=== PATIENT | male | born 1995 | race Caucasian/White ===

== ENCOUNTER 2016-05-18 22:51 | Emergency (ER) | payer OTHER ==
[~2016-05-18] VITALS: Ht 182.9 cm; Wt 68.2 kg
[2016-05-18 22:56] VITALS: BP 141/76; PULSE 102; RESP 16; O2SAT 98
--- NOTE | 2016-05-19 00:05 | ED.REPORT ---
HPI-Extremity Problem Upper Date of Service May 19, 2016 ED Provider: MD Julian This is a 20 year old male presenting to the emergency department due to R arm pain that worsened today. 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 Denies numbness or tingling. Denies any other injuries at this time. Nursing Notes Stated Complaint: RT ARM PAIN/SWELLING Chief Complaint: Extremity Trauma Nursing Notes Reviewed: Yes Allergies: Coded Allergies: No Known Allergies (Unverified , 05/18/16) General Time Seen by MD: 00:04 Chief Complaint Arm injury right Hx Obtained From: Patient Arrived By: Walk-in Onset Occurred: 5 - 8 hours ago Symptom Duration: Since onset Severity: Current: Moderate Pertinent Negative: Pt denies other symptoms Recent Healthcare: No recent doctor visit, No recent hospitalization Similar Sx Previous: No Past Medical History Past Medical History Denies Ambulatory Status Independent Review of Systems Constitutional: Denies: Chills, Fever Musculoskeletal: Reports: Extremity pain, Extremity swelling Neurologic: Denies: Numbness Complete sys rev & neg: except as marked. Physical Exam Initial Vital Signs Vital Signs (First) Date Time Temp Pulse Resp B/P Pulse Ox O2 Delivery O2 Flow Rate FiO2 05/18/16 22:56 37.4 102 16 141/76 98 Room Air Initial VS: Reviewed General/Constitutional: Well-developed, Well-nourished Head / Eyes: Atraumatic, Normocephalic, PERRL ENT: Mucous membranes moist, Conjunctiva normal, No scleral icterus Neck: Supple, Non-tender, Full range of motion Respiratory: Breath sounds normal, Clear to auscultation, No respiratory distress Cardiovascular: Regular rate & rhythm, Heart sounds normal, Intact distal pulses Lower Extremities: Vascular intact, Neuro intact, No swelling, No tenderness Skin: Warm, Dry, No cyanosis Neurologic: Alert, Oriented, Nonfocal Psychiatric: Mood/affect normal, Behavior normal, Normal thought content Upper Extremity / MS: Neurologic intact, Vascular intact Tender swollen area just proximal to R wrist. Radial, ulnar, medial nerves intact, 5/5 strength in hand Interpretation & Diagnostics R ARM X-RAY Negative. Wet Read ED physician Re-Eval/Medical Decision Med Decision/Clinical Course 20-year-old male with no past medical history here with slight swelling to the right forearm. Differential diagnosis includes but is not limited to fracture versus dislocation versus contusion versus muscle spasm. Patient's x-ray is normal by my read. He has no snuffbox tenderness to palpation. He is distally neurovascularly intact. He is amenable to discharge with ibuprofen and follow up with his primary care physician, and has been given very strict return precautions. Counseled Regarding: Diagnosis, Lab results, Need for follow-up, When/why to return to ED Discharge & Departure Impression: Primary Impression: Right arm pain Disposition: Home Discharge Condition All VS Reviewed: Yes Condition: Stable Additional Instructions: Thank you for seeking care in the emergency department. Your x-ray was normal. Take ibuprofen as needed for pain control. Follow up with your primary care provider. Return to the emergency department for any new or worsening symptoms. Referrals: [facility] Scribe Attestation Portions of this note were transcribed by Negin Altamirano. I, Dr. Jordan personally performed the history, physical exam and medical decision-making; I reviewed and confirmed the accuracy of the information in the transcribed note. Signed by: wally Bassett. 05/18/2016, 03:00. Jessica Jordan MD May 19, 2016 00:05 NEGIN ALTAMIRANO May 19, 2016 00:17
--- NOTE | 2016-05-19 09:05 | DRSVH ---
PROCEDURE: X-RAY RIGHT FOREARM, TWO VIEWS ([id number]) INDICATIONS: forearm pain/swelling TECHNIQUE: 2 views of the forearm were acquired. COMPARISON: None. FINDINGS: Bones: No fractures or dislocations. No suspicious bony lesions. Soft tissues: No suspicious soft tissue calcifications or masses. Mild dorsal soft tissue swelling. IMPRESSION: No displaced fracture seen. If there is continued pain, followup exam or additional yi ging such as MRI or CT could be performed for further assessment. Dictated by: aDt Douglas [facility] Interpreted: Aury Alexandre MD on 05/19/2016 at 9:04 Transcribed by: MARCELO on 05/19/2016 at 9:05 Approved by: Aury Alexandre MD, PhD on 05/19/2016 at 17:17
== END 2016-05-19 01:25 | disposition home or self-care (01) ==
LOC: SED 22:51
DX: M79.631 Pain in right forearm (principal)

== ENCOUNTER 2016-06-16 15:12 | Emergency (ER) | payer OTHER ==
[~2016-06-16] VITALS: Ht 182.9 cm; Wt 72.7 kg
[2016-06-16 15:23] VITALS: BP 136/75; PULSE 69; RESP 15; O2SAT 97
[2016-06-16] MEDS ORDERED: Fluorescein 0.6 mg Ophthalmic Strip LEFT_EYE ONE (19:15)
[2016-06-16] MEDS ORDERED: Tetracaine 0.5% 4 mL Ophthalmic Solution LEFT_EYE ONE (19:15)
--- NOTE | 2016-06-16 19:56 | ED.REPORT ---
HPI-Eye Problem Date of Service June 16, 2016 ED Provider: Ramone Arellano History of Present Illness: 20yo brandon was drilling into wood board above head this morning when saw dust debris fell into L eye. was not wearing eye protection. Flushed copiously. L eye vision feels blurred. No other injuries. Does not wear contacts or glasses. Nursing Notes Stated Complaint: EYE Chief Complaint: Eye Nursing Notes Reviewed: Yes Allergies: Coded Allergies: No Known Allergies (Unverified , 06/16/16) Scheduled Moxifloxacin Ophth Soln (Vigamox Ophth Soln) 3 Ml Soln 1 DROP LEFT_EYE TID Scheduled PRN Hydrocodone-Acetaminophen 5-325 mg (Hydrocodone-Acetaminophen 5-325 mg) 1 Each Tablet 1 TABLET PO QID PRN PRN For Pain General Time Seen by MD: 18:59 Chief Complaint Left eye affected, Foreign body sensation, Pain, Redness Hx Obtained From: Patient Arrived By: Walk-in Sudden in Onset?: Yes Onset Occurred: 9 - 12 hours ago Symptom Duration: Since onset Progression Since Onset: Unchanged Caused by: Foreign body in eye Location: : Eye left Radiation: Does not radiate Severity: Current: Moderate Severity: Maximum: Moderate Associated with: Reports: Blurred vision, Eye tearing Pertinent Negative: Pt denies other symptoms Pertinent Negative: Exacerbated by nothing, Relieved by nothing Related History: Denies: Contact lens use, Eye surgery Recent Healthcare: No recent doctor visit Similar Sx Previous: No Risk-Eye Problem Eye Injury Risk Stratification RF Statements: No risk factors Past Medical History Past Medical History Denies Past Surgical History denies Ambulatory Status Independent Review of Systems Constitutional: Denies: Chills, Fever Eyes: Reports: Blurred left, Eye pain left, Redness left Respiratory: Denies: Shortness of breath Cardiovascular: Denies: Chest pain GI: Denies: Abdominal pain Physical Exam Physical Exam Notes: Visual acuity: OS 20/60; OD 20/30 Initial Vital Signs Vital Signs (First) Date Time Temp Pulse Resp B/P Pulse Ox O2 Delivery O2 Flow Rate FiO2 06/16/16 15:23 36.0 69 15 136/75 97 Room Air Initial VS: Reviewed Head / Eyes: PERRL, EOMI, No periorbital swelling Cornea/Anterior Chamber: Positive: Abrasion L... (Superficial) Conjunctiva / Sclera: Positive: Injected left Eyelids: Positive: Edema L... (Upper), Negative: FB under lid L General/Constitutional: Awake, Alert, No acute distress Neck: Supple Respiratory / Chest: Breath sounds NL, Breath sounds = bilat, No respiratory distress Cardiovascular: Heart rate NL, Regular rhythm, Heart sounds NL Procedures Slit Lamp Exam Pt. examined by Dr. albarran and myself. Dr. Albarran detected L lateral corneal stippling/superficial abrasions. Time: 19:50 Procedure Performed by: ED physician, Allied health pract Cornea/Ant Chamber/Iris/Lens: Corneal abrasion Re-Eval/Medical Decision Med Decision/Clinical Course WQill place on Vigamox and [place], f/u with eye doctor tomorrow for recheck. Differential Diagnosis: Positive: Corneal abrasion Diagnosis Appears: Evident Counseled Regarding: Diagnosis, Need for follow-up, When/why to return to ED Discharge & Departure Primary Impression: Left corneal abrasion Encounter type: initial encounter Qualified Code: S05.02XA - Injury of conjunctiva and corneal abrasion without foreign body, left eye, initial encounter Disposition: Home Patient Instructions: Corneal Abrasion (ED) Additional Instructions: Take meds as prescribed. Always wear eye protection when using any sort of tool. Follow up with eye doctor tomorrow for recheck. Referrals: [facility] 1 Day [phone] EDSupervising Provider for APC: Justin Albarran MD Attending Statement I personally saw and examined the patient in the Emergency Department. I have reviewed the chart and agree with the documentation as recorded by the Midlevel Provider, including the assessment, treatment plan, and the disposition. Ramone Arellano PAC June 16, 2016 19:56 Justin Albarran MD June 16, 2016 23:59
[2016-06-16] MEDS ORDERED: VIGAMOX LEFT_EYE (20:20)
[2016-06-16] MEDS ORDERED: HYDR-4003 PO (20:20)
== END 2016-06-16 20:33 | disposition home or self-care (01) ==
LOC: SED 15:12
DX: S05.02XA Injury of conjunctiva and corneal abrasion without foreign body, left eye, initial encounter (principal); X58.XXXA Exposure to other specified factors, initial encounter; Y93.89 Activity, other specified; Y92.69 Other specified industrial and construction area as the place of occurrence of the external cause; Y99.0 Civilian activity done for income or pay